=== PATIENT | female | born 1995 | race Caucasian/White ===

== ENCOUNTER 2017-11-04 03:02 | Emergency (ER) | payer SELFPAY ==
[~2017-11-04] VITALS: Ht 170.2 cm; Wt 114.0 kg
[2017-11-04] MEDS ORDERED: ALBUTEROL (03:14)
[2017-11-04 03:45] LABS: HCG UR SG 1.014 (1.003-1.030); MICROSCOPIC NOT IND
[2017-11-04 03:46] LABS: CULTURE INDICATED? NO
[2017-11-04 04:34] LABS: BASOPHILS # (AUTO) 0.04 x10^3/uL (0-0.1); BASOPHILS % (AUTO) 0 % (0-1); EOSINOPHILS # (AUTO) 0.28 x10^3/uL (0-0.4); EOSINOPHILS % (AUTO) 3 % (1-7); LYMPHOCYTES # (AUTO) 2.71 x10^3/uL (1-3.4); LYMPHOCYTES % (AUTO) 26 % (22-44); MD NO; MEAN CORPUSCULAR HEMOGLOBIN 28.4 pg (27.0-34.8); MEAN CORPUSCULAR HGB CONC 33.9 g/dL (32.4-35.8); MEAN CORPUSCULAR VOLUME 83.7 fL (80-100); MEAN PLATELET VOLUME 8.7 fL (7.4-10.4); MONOCYTES # (AUTO) 0.59 x10^3/uL (0.2-0.8); MONOCYTES % (AUTO) 6 % (2-9); NEUTROPHILS % (AUTO) 65 % (42-75); PLATELET COUNT 389 x10^3/uL (130-400); RED BLOOD COUNT 4.36 x10^6/uL (3.82-5.3); RED CELL DISTRIBUTION WIDTH 13.6 % (9.6-15.2)
[2017-11-04 04:39] LABS: ALBUMIN 3.6 g/dL (3.4-5.0); ANION GAP 8 mmol/L (5-15); CALCIUM 8.4 mg/dL (8.5-10.1); CHLORIDE 108 mmol/L (98-107); CREATININE 0.68 mg/dL (0.55-1.02)
[2017-11-04 05:12] VITALS: BP 124/67
== END 2017-11-04 05:13 ==
LOC: ED 04:41
DX: N83.202 Unspecified ovarian cyst, left side (principal); J45.909 Unspecified asthma, uncomplicated; Z90.49 Acquired absence of other specified parts of digestive tract
CPT/HCPCS: 36415; 76856; 80048; 81003; 81025; 82040; 85025; 99285

== ENCOUNTER 2018-06-17 13:04 | Emergency (ER) | payer MEDICAID, OTHER ==
[~2018-06-17] VITALS: Ht 170.2 cm; Wt 110.5 kg
[~2018-06-17 13:04] MED LIST: ALBUTEROL
[2018-06-17 13:18] VITALS: BP 142/88
[2018-06-17 14:42] LABS: MICROSCOPIC INDICATED
[2018-06-17 14:45] LABS: CULTURE INDICATED? NO
== END 2018-06-17 15:17 | disposition home or self-care (01) ==
LOC: ED 13:44
DX: Z32.01 Encounter for pregnancy test, result positive (principal)
CPT/HCPCS: 36415; 76830; 81001; 84702; 86901; 99285

== ENCOUNTER 2018-06-23 21:23 | Emergency (ER) | payer MEDICAID, OTHER ==
[~2018-06-23] VITALS: Ht 170.2 cm; Wt 112.0 kg
[2018-06-23 21:28] VITALS: BP 123/64
[2018-06-23 22:02] LABS: MICROSCOPIC INDICATED
[2018-06-23 22:09] LABS: CULTURE INDICATED? YES
== END 2018-06-23 23:30 | disposition home or self-care (01) ==
LOC: ED 22:07
DX: O20.9 Hemorrhage in early pregnancy, unspecified (principal); Z3A.01 Less than 8 weeks gestation of pregnancy; Z90.49 Acquired absence of other specified parts of digestive tract
CPT/HCPCS: 36415; 81001; 84702; 87086; 99284

== ENCOUNTER 2018-08-03 14:23 | Emergency (ER) | payer MEDICAID ==
[~2018-08-03] VITALS: Ht 165.1 cm; Wt 110.2 kg
[2018-08-03 15:14] LABS: BASOPHILS # (AUTO) 0.04 x10^3/uL (0-0.1); BASOPHILS % (AUTO) 0 % (0-1); EOSINOPHILS # (AUTO) 0.25 x10^3/uL (0-0.4); EOSINOPHILS % (AUTO) 2 % (1-7); LYMPHOCYTES # (AUTO) 2.09 x10^3/uL (1-3.4); LYMPHOCYTES % (AUTO) 19 % (22-44); MD NO; MEAN CORPUSCULAR VOLUME 85.1 fL (80-100); MEAN PLATELET VOLUME 8.6 fL (7.4-10.4); MONOCYTES # (AUTO) 0.63 x10^3/uL (0.2-0.8); MONOCYTES % (AUTO) 6 % (2-9); NEUTROPHILS # (AUTO) 7.98 x10^3/uL (1.8-6.8); NEUTROPHILS % (AUTO) 73 % (42-75); PLATELET COUNT 356 x10^3/uL (130-400); RED BLOOD COUNT 4.56 x10^6/uL (3.82-5.3); RED CELL DISTRIBUTION WIDTH 13.1 % (9.6-15.2)
[2018-08-03 15:24] LABS: ALBUMIN 3.6 g/dL (3.4-5.0); ANION GAP 8 mmol/L (5-15); CALCIUM 9.1 mg/dL (8.5-10.1); CHLORIDE 107 mmol/L (98-107); CREATININE 0.58 mg/dL (0.55-1.02)
[2018-08-03 15:58] VITALS: BP 118/76
== END 2018-08-03 16:01 | disposition home or self-care (01) ==
LOC: ED 15:42
DX: O26.891 Other specified pregnancy related conditions, first trimester (principal); R42 Dizziness and giddiness; Z3A.11 11 weeks gestation of pregnancy
CPT/HCPCS: 36415; 80048; 82040; 85025; 93005; 99284

== ENCOUNTER 2018-10-09 21:23 | Outpatient (CLI) | payer MEDICAID ==
[~2018-10-09] VITALS: Ht 167.6 cm; Wt 112.7 kg
[2018-10-09 21:45] VITALS: BP 114/63
[2018-10-09] MEDS ORDERED: PREN1TAB60 PO (22:18)
== END 2018-10-09 22:30 | disposition home or self-care (01) ==
LOC: LDOP 21:23
PROVIDERS: ATTEND Obstetrics & Gynecology Maternal & Fetal Medicine
DX: O42.912 Preterm premature rupture of membranes, unspecified as to length of time between rupture and onset of labor, second trimester (principal); Z3A.20 20 weeks gestation of pregnancy
CPT/HCPCS: 59025; 89060; 99211; G0463; Q0114

== ENCOUNTER 2018-12-05 16:20 | Outpatient (CLI) | payer MEDICAID ==
[~2018-12-05] VITALS: Ht 167.6 cm; Wt 116.4 kg
[~2018-12-05 16:20] MED LIST changes: +PREN1TAB60 PO
[2018-12-05 16:39] VITALS: BP 121/70
[2018-12-05 17:34] LABS: MICROSCOPIC NOT IND
== END 2018-12-05 18:24 | disposition home or self-care (01) ==
LOC: LDOP 16:20
PROVIDERS: ATTEND Advanced Practice Midwife
DX: O26.853 Spotting complicating pregnancy, third trimester (principal); Z3A.28 28 weeks gestation of pregnancy
CPT/HCPCS: 59025; 81003; 87086; 99211; G0463

== ENCOUNTER 2018-12-25 02:54 | Outpatient (CLI) | payer MEDICAID ==
[~2018-12-25] VITALS: Ht 170.2 cm; Wt 117.7 kg
[2018-12-25 03:13] VITALS: BP 123/75
[2018-12-25 03:38] LABS: MICROSCOPIC INDICATED
== END 2018-12-25 04:10 | disposition home or self-care (01) ==
LOC: LDOP 02:54
PROVIDERS: ATTEND Obstetrics & Gynecology Maternal & Fetal Medicine
DX: O26.893 Other specified pregnancy related conditions, third trimester (principal); R10.9 Unspecified abdominal pain; Z3A.33 33 weeks gestation of pregnancy
CPT/HCPCS: 59025; 81001; 87086; 99211; G0463

== ENCOUNTER 2019-01-17 12:30 | Outpatient (CLI) | payer MEDICAID ==
[~2019-01-17] VITALS: Ht 170.2 cm; Wt 118.0 kg
[2019-01-17 12:48] VITALS: BP 121/63
== END 2019-01-17 13:56 | disposition home or self-care (01) ==
LOC: LDOP 12:30
PROVIDERS: ATTEND Obstetrics & Gynecology Maternal & Fetal Medicine
DX: O42.913 Preterm premature rupture of membranes, unspecified as to length of time between rupture and onset of labor, third trimester (principal); Z3A.32 32 weeks gestation of pregnancy
CPT/HCPCS: 59025; 87081; 89060; 99211; G0463; Q0114

== ENCOUNTER 2019-02-03 11:43 | Inpatient (IN) | payer MEDICAID ==
[~2019-02-03] VITALS: Ht 167.6 cm; Wt 122.3 kg
[2019-02-03 21:15] VITALS: BP 138/77
[2019-02-03] MEDS ORDERED: OXYTOCIN 30U/ 0.9% NaCL 500ML 500 ML IV PRN (21:41)
[2019-02-03] MEDS ORDERED: D5%-LACTATED RINGERS 1,000 ML IV SCH (21:41)
[2019-02-03] MEDS ORDERED: OXYTOCIN 30U/ 0.9% NaCL 500ML 500 ML IV ONE (21:41)
[2019-02-03] MEDS: LACTATED RINGERS 1,000 ML IV SCH (21:41)
[2019-02-03] MEDS ORDERED: SODIUM CHLORIDE FLUSH 10ML SYR IVF PRN (22:00)
[2019-02-03] MEDS ORDERED: SODIUM CITRATE/CITRIC ACID 15 ML UDC PO PRN (22:00)
[2019-02-03] MEDS ORDERED: METOCLOPRAMIDE 5 MG/ML, 2ML IVPush PRN (22:00)
[2019-02-03] MEDS ORDERED: ONDANSETRON 2MG/ML, 2ML IVPush PRN (22:00)
[2019-02-03] MEDS ORDERED: FENTANYL PF 100 MCG/2ML IV PRN (22:00)
[2019-02-03] MEDS ORDERED: FENTANYL PF 100 MCG/2ML IVPush PRN (22:00)
[2019-02-03 22:41] LABS: BASOPHILS # (AUTO) 0.02 x10^3/uL (0-0.1); BASOPHILS % (AUTO) 0 % (0-1); EOSINOPHILS # (AUTO) 0.23 x10^3/uL (0-0.4); EOSINOPHILS % (AUTO) 2 % (1-7); LYMPHOCYTES # (AUTO) 2.02 x10^3/uL (1-3.4); LYMPHOCYTES % (AUTO) 18 % (22-44); MD NO; MEAN CORPUSCULAR HEMOGLOBIN 28.1 pg (27.0-34.8); MEAN CORPUSCULAR HGB CONC 32.8 g/dL (32.4-35.8); MEAN CORPUSCULAR VOLUME 85.8 fL (80-100); MEAN PLATELET VOLUME 8.7 fL (7.4-10.4); MONOCYTES % (AUTO) 7 % (2-9); NEUTROPHILS # (AUTO) 8.29 x10^3/uL (1.8-6.8); NEUTROPHILS % (AUTO) 73 % (42-75); PLATELET COUNT 299 x10^3/uL (130-400); RED BLOOD COUNT 3.96 x10^6/uL (3.82-5.3); RED CELL DISTRIBUTION WIDTH 14.4 % (9.6-15.2)
[2019-02-03] MEDS ORDERED: MISOPROSTOL 200 MCG TABLET ONE (22:47)
[2019-02-03] MEDS ORDERED: LIDOCAINE 1%, 20ML ONE (22:47)
[2019-02-03] MEDS ORDERED: NEWBORN KIT ONE (22:47)
[2019-02-04] MEDS ORDERED: OXYTOCIN 30U/ 0.9% NaCL 500ML 500 ML ONE (09:56)
[2019-02-04] MEDS: LACTATED RINGERS 1,000 ML IV SCH (10:21)
[2019-02-04] MEDS ORDERED: FENTANYL PF 500 MCG, BUPIVACAINE/PF 0.5%, 30ML 62.5 ML in SODIUM CHLORIDE 0.9% 177.5 ML EPIDCONT SCH (11:05)
[2019-02-04] MEDS ORDERED: LACTATED RINGERS 1,000 ML IV SCH (11:20)
[2019-02-04] MEDS ORDERED: FENTANYL/BUPIV./NS/PF 250 ML EPIDCONT SCH (11:20)
[2019-02-04] MEDS: LACTATED RINGERS 1,000 ML IVBOLUS PRN (11:24)
[2019-02-04] MEDS ORDERED: EPHEDRINE 50 MG/ML, 1ML IVPush PRN (11:30)
[2019-02-04 19:32] VITALS: BP 122/59
[2019-02-04 20:46] LABS: MICROSCOPIC INDICATED
[2019-02-04 20:56] LABS: CREATININE,URINE RANDOM 19.6 mg/dL
[2019-02-04 21:06] LABS: ALANINE AMINOTRANSFERASE 18 U/L (12-78); ALBUMIN 2.4 g/dL (3.4-5.0); ANION GAP 9 mmol/L (5-15); BILIRUBIN, DIRECT 0.1 mg/dL (0.1-0.2); CALCIUM 8.4 mg/dL (8.5-10.1); CHLORIDE 110 mmol/L (98-107)
[2019-02-04 21:09] LABS: ALKALINE PHOSPHATASE 151 U/L (45-117); BILIRUBIN,TOTAL 0.4 mg/dL (0.2-1.0); TOTAL PROTEIN 6.1 g/dL (6.4-8.2)
[2019-02-05] MEDS ORDERED: MISOPROSTOL 25 MCG TABLET ONE ×2 (05:12→10:22)
[2019-02-05] MEDS: MISOPROSTOL 25 MCG TABLET VG PRN ×2 (06:06→10:25)
[2019-02-05] MEDS ORDERED: METOCLOPRAMIDE 5 MG/ML, 2ML ONE (16:26)
[2019-02-05] MEDS ORDERED: SODIUM CITRATE/CITRIC ACID 15 ML UDC ONE (16:26)
[2019-02-05] MEDS ORDERED: LACTATED RINGERS 1,000 ML IVBOLUS ONE (17:00)
[2019-02-05 17:31] LABS: BASOPHILS # (AUTO) 0.01 x10^3/uL (0-0.1); BASOPHILS % (AUTO) 0 % (0-1); EOSINOPHILS # (AUTO) 0.03 x10^3/uL (0-0.4); EOSINOPHILS % (AUTO) 0 % (1-7); LYMPHOCYTES # (AUTO) 1.79 x10^3/uL (1-3.4); LYMPHOCYTES % (AUTO) 17 % (22-44); MD NO; MEAN CORPUSCULAR HEMOGLOBIN 28.1 pg (27.0-34.8); MEAN CORPUSCULAR HGB CONC 32.5 g/dL (32.4-35.8); MEAN CORPUSCULAR VOLUME 86.5 fL (80-100); MEAN PLATELET VOLUME 8.6 fL (7.4-10.4); MONOCYTES # (AUTO) 0.69 x10^3/uL (0.2-0.8); MONOCYTES % (AUTO) 6 % (2-9); NEUTROPHILS # (AUTO) 8.29 x10^3/uL (1.8-6.8); NEUTROPHILS % (AUTO) 77 % (42-75); PLATELET COUNT 272 x10^3/uL (130-400); RED BLOOD COUNT 3.84 x10^6/uL (3.82-5.3); RED CELL DISTRIBUTION WIDTH 14.5 % (9.6-15.2)
[2019-02-05] MEDS ORDERED: KETOROLAC 30 MG/1 ML ONE (19:16)
[2019-02-05] MEDS ORDERED: ONDANSETRON 2MG/ML, 2ML ONE (19:16)
[2019-02-05] MEDS ORDERED: CEFAZOLIN 1,000 MG ONE (19:16)
[2019-02-05] MEDS ORDERED: DEXAMETHASONE 4 MG/ML, 1ML ONE (19:16)
[2019-02-05] MEDS ORDERED: PHENYLEPHRINE 10 MG/ML ONE (19:16)
[2019-02-05] MEDS ORDERED: EPHEDRINE 50 MG/ML, 1ML ONE (19:16)
[2019-02-05] MEDS ORDERED: OXYTOCIN 10 UNITS/ML, 1ML ONE (19:16)
[2019-02-05] MEDS ORDERED: FENTANYL PF 100 MCG/2ML ONE (19:17)
[2019-02-05] MEDS ORDERED: PROMETHAZINE 25 MG/ML, 1ML IV PRN (19:30)
[2019-02-05] MEDS ORDERED: ALBUTEROL SULFATE 2.5 MG/3 ML NPPB PRN (19:30)
[2019-02-05] MEDS ORDERED: MEPERIDINE/PF 25MG/0.5ML IVPush PRN (19:30)
[2019-02-05] MEDS ORDERED: HYDROcodone/APAP 7.5-325MG/15ML UDC PO PRN (19:30)
[2019-02-05] MEDS ORDERED: hydrALAzine 20 MG/ML, 1ML IV PRN (19:30)
[2019-02-05] MEDS ORDERED: ONDANSETRON 2MG/ML, 2ML IVPush PRN (19:30)
[2019-02-05] MEDS ORDERED: FENTANYL PF 100 MCG/2ML IV PRN (19:30)
[2019-02-05] MEDS ORDERED: HYDROmorphone 2 MG/ML, 1ML IVPush PRN (19:30)
[2019-02-05] MEDS ORDERED: OXYcodone 5 MG/5 ML ORAL.SOL UDC PO PRN (19:30)
[2019-02-05] MEDS ORDERED: LABETALOL 5MG/ML, 20ML IV PRN (19:30)
[2019-02-05] MEDS ORDERED: EPHEDRINE 50 MG/ML, 1ML IVPush PRN (19:30)
[2019-02-05] MEDS ORDERED: MIDAZOLAM 1 MG/ML, 2ML IV PRN (19:30)
[2019-02-05] MEDS ORDERED: METOPROLOL 1 MG/ML, 5ML IV PRN (19:30)
[2019-02-05] MEDS: LACTATED RINGERS 1,000 ML IVBOLUS PRN (19:36)
[2019-02-05] MEDS ORDERED: AZITHROMYCIN 500 MG in SODIUM CHLORIDE 0.9% 250 ML IV SCH (20:30)
[2019-02-05] MEDS ORDERED: HYDROmorphone 2 MG/ML, 1ML ONE (21:24)
[2019-02-05] MEDS: LACTATED RINGERS 1,000 ML IV SCH ×2 (22:10→22:33)
[2019-02-05] MEDS ORDERED: IBUPROFEN 600 MG TABLET PO PRN (22:30)
[2019-02-05] MEDS ORDERED: MISOPROSTOL 200 MCG TABLET PR PRN (22:30)
[2019-02-05] MEDS ORDERED: METHYLERGONOVINE 0.2 MG/ML IM PRN (22:30)
[2019-02-05] MEDS ORDERED: CARBOPROST TROMETHAMINE 250 MCG/ML, 1ML IM PRN (22:30)
[2019-02-05] MEDS ORDERED: OXYcodone/APAP 5/325MG TABLET PO PRN (22:30)
[2019-02-05] MEDS ORDERED: ONDANSETRON 2MG/ML, 2ML IV PRN (22:30)
[2019-02-05] MEDS: OXYTOCIN 30U/ 0.9% NaCL 500ML 500 ML IV SCH (22:34)
[2019-02-05 23:45] VITALS: BP 125/76
[2019-02-06] MEDS: OXYcodone IR 5MG TABLET PO PRN ×2 (00:31→09:31)
[2019-02-06] MEDS: ACETAMINOPHEN 325 MG TABLET PO PRN ×3 (00:31→09:32)
[2019-02-06] MEDS: KETOROLAC 30 MG/1 ML IVPush PRN ×3 (04:59→20:51)
[2019-02-06 05:00] VITALS: BP 126/70
[2019-02-06 05:24] LABS: BASOPHILS # (AUTO) 0.03 x10^3/uL (0-0.1); BASOPHILS % (AUTO) 0 % (0-1); EOSINOPHILS # (AUTO) 0.01 x10^3/uL (0-0.4); EOSINOPHILS % (AUTO) 0 % (1-7); LYMPHOCYTES # (AUTO) 1.13 x10^3/uL (1-3.4); LYMPHOCYTES % (AUTO) 8 % (22-44); MD NO; MEAN CORPUSCULAR HEMOGLOBIN 27.8 pg (27.0-34.8); MEAN CORPUSCULAR HGB CONC 32.7 g/dL (32.4-35.8); MONOCYTES # (AUTO) 0.51 x10^3/uL (0.2-0.8); MONOCYTES % (AUTO) 4 % (2-9); NEUTROPHILS # (AUTO) 11.78 x10^3/uL (1.8-6.8); NEUTROPHILS % (AUTO) 88 % (42-75); PLATELET COUNT 258 x10^3/uL (130-400); RED BLOOD COUNT 3.56 x10^6/uL (3.82-5.3); RED CELL DISTRIBUTION WIDTH 14.4 % (9.6-15.2)
[2019-02-06] MEDS: LACTATED RINGERS 1,000 ML IV SCH ×5 (06:10→22:10)
[2019-02-06 08:00] VITALS: BP 122/78
[2019-02-06] MEDS: OXYTOCIN 30U/ 0.9% NaCL 500ML 500 ML IV SCH ×2 (08:10→18:10)
[2019-02-06] MEDS: PRENATAL VIT/IRON/FA 1 EACH TABLET PO SCH (09:31)
[2019-02-06] MEDS: DOCUSATE 100 MG CAPSULE PO PRN ×2 (09:32→20:51)
[2019-02-06 12:00] VITALS: BP 122/83
[2019-02-06 16:47] VITALS: BP 114/72
[2019-02-06 20:15] VITALS: BP 123/79
[2019-02-07] MEDS: KETOROLAC 30 MG/1 ML IVPush PRN ×4 (03:04→21:03)
[2019-02-07] MEDS: LACTATED RINGERS 1,000 ML IV SCH ×5 (04:10→22:10)
[2019-02-07] MEDS: OXYTOCIN 30U/ 0.9% NaCL 500ML 500 ML IV SCH ×2 (04:10→14:10)
[2019-02-07] MEDS: PRENATAL VIT/IRON/FA 1 EACH TABLET PO SCH (09:31)
[2019-02-07] MEDS: FERROUS GLUCONATE 324 MG TABLET PO SCH (09:31)
[2019-02-07] MEDS: DOCUSATE 100 MG CAPSULE PO PRN (09:31)
[2019-02-07 20:00] VITALS: BP 133/87
[2019-02-08] MEDS: FERROUS GLUCONATE 324 MG TABLET PO SCH (08:01)
[2019-02-08] MEDS: DOCUSATE 100 MG CAPSULE PO PRN (08:01)
[2019-02-08] MEDS: ACETAMINOPHEN 325 MG TABLET PO PRN (08:01)
[2019-02-08] MEDS: PRENATAL VIT/IRON/FA 1 EACH TABLET PO SCH (08:02)
[2019-02-08 08:15] VITALS: BP 129/83
[2019-02-08] MEDS ORDERED: OXYC-302 PO (10:26)
[2019-02-08] MEDS ORDERED: DOCU-131 PO (10:26)
[2019-02-08] MEDS ORDERED: IBUP-1222 PO (10:26)
[2019-02-08] MEDS ORDERED: FERR324T18 PO (10:28)
== END 2019-02-08 12:20 | disposition home or self-care (01) | DRG 788 ==
LOC: LDIP 20:51 → 2NW 02-05 23:20
PROVIDERS: ADMIT Obstetrics & Gynecology Maternal & Fetal Medicine; ATTEND Obstetrics & Gynecology Maternal & Fetal Medicine
PROC: 10D00Z1 Extraction of Products of Conception, Low, Open Approach (ICD-10-PCS; principal; 2019-02-05)
DX: O99.52 Diseases of the respiratory system complicating childbirth (principal); D64.9 Anemia, unspecified; E66.01 Morbid (severe) obesity due to excess calories; J45.909 Unspecified asthma, uncomplicated; O99.214 Obesity complicating childbirth; Z37.0 Single live birth; Z3A.39 39 weeks gestation of pregnancy; O61.9 Failed induction of labor, unspecified; Z90.49 Acquired absence of other specified parts of digestive tract; O90.81 Anemia of the puerperium
CPT/HCPCS: 36415; S0020; 80053; 81001; 82248; 82570; 84132; 84156; 84550; 85025; 86850; 86900; G0378; J0456; J0690; J1100; J1170; J1885; J2405; J3010; J2370; J2590; J2765; J7050; J7120

== ENCOUNTER 2021-01-28 11:09 | Emergency (ER) | payer MEDICAID ==
[~2021-01-28] VITALS: Ht 170.2 cm; Wt 107.6 kg
[~2021-01-28 11:09] MED LIST changes: +DOCU-131 PO; +FERR324T18 PO; +IBUP-1222 PO; +OXYC1TAB14 PO
--- NOTE | 2021-01-28 12:03 | NUR ---
PT OFF THE FLOOR TO ULTRASOUND
[2021-01-28 12:11] LABS: BASOPHILS % (AUTO) 1 % (0-1); EOSINOPHILS % (AUTO) 1 % (1-7); LYMPHOCYTES % (AUTO) 24 % (22-44); MEAN CORPUSCULAR HEMOGLOBIN 28.4 pg (27.0-34.8); MEAN CORPUSCULAR HGB CONC 33.7 g/dL (32.4-35.8); MEAN PLATELET VOLUME 8.3 fL (7.4-10.4); MONOCYTES % (AUTO) 6 % (2-9); NEUTROPHILS % (AUTO) 68 % (42-75); PLATELET COUNT 326 x10^3/uL (130-400); RED BLOOD COUNT 4.75 x10^6/uL (3.82-5.3); RED CELL DISTRIBUTION WIDTH 13.5 % (9.6-15.2)
[2021-01-28 12:19] LABS: MD NO
[2021-01-28 12:21] LABS: ALBUMIN 3.9 g/dL (3.4-5.0); ANION GAP 4 mmol/L (5-15); CALCIUM 8.7 mg/dL (8.5-10.1); CHLORIDE 109 mmol/L (98-107)
--- NOTE | 2021-01-28 13:01 | NUR ---
provider at bedside for exam. ua collected and sent
[2021-01-28 13:24] LABS: MICROSCOPIC INDICATED
[2021-01-28 13:33] VITALS: BP 119/61
[2021-01-28 13:33] LABS: CLUE CELLS NONE SEEN (NONE SEEN); WET PREP WBCS FEW (FEW)
--- NOTE | 2021-01-28 14:27 | NUR ---
PT REC'VD DISCHARGE INSTRUCTIONS AND EDUCATION PT HAD NO FURTHER QUESTIONS. JOSEPHINE AMBULATED, WITH SPOUSE, TO DC AREA, STEADY GAIT.
== END 2021-01-28 14:29 | disposition home or self-care (01) ==
LOC: ED 11:51
DX: O46.91 Antepartum hemorrhage, unspecified, first trimester (principal); Z3A.01 Less than 8 weeks gestation of pregnancy
CPT/HCPCS: 36415; 76830; 80048; 81001; 82040; 84702; 85025; 86901; 87210; 87491; 87591; 87808; 99284

== ENCOUNTER 2021-01-30 10:42 | Emergency (ER) | payer MEDICAID ==
[~2021-01-30] VITALS: Ht 170.2 cm; Wt 109.5 kg
[2021-01-30 10:51] VITALS: BP 120/65
--- NOTE | 2021-01-30 12:31 | NUR ---
Patient/Caregiver given discharge instructions and they have confirmed that they understand the instructions. Patient ambulatory with steady gait. NAD, all questions answered appropriately, denies additional needs at this time. No personal belongings left in room after discharge.
== END 2021-01-30 12:33 | disposition home or self-care (01) ==
LOC: ED 10:43
DX: O26.891 Other specified pregnancy related conditions, first trimester (principal); O99.511 Diseases of the respiratory system complicating pregnancy, first trimester; J45.909 Unspecified asthma, uncomplicated; Z90.49 Acquired absence of other specified parts of digestive tract; Z3A.01 Less than 8 weeks gestation of pregnancy
CPT/HCPCS: 36415; 84702; 99283